=== PATIENT | male | born 1960 | race Asian ===

== ENCOUNTER 2018-03-15 19:49 | Emergency (ER) | payer MEDICAID ==
[~2018-03-15] VITALS: Ht 160 cm; Wt 68.0 kg
[~2018-03-15 19:49] MED LIST: ALBU8HFA PO; AMIO200T57 PO; APIX2.5T PO; CARV3.1289 PO; FURO40TA4 PO; LISI-600 PO; PANT-47 PO
[2018-03-15] MEDS ORDERED: dexamethasone sod phosphate 10mg/ml inj PO STA (20:33)
[2018-03-15] MEDS ORDERED: doxycycline hyclate 100mg tablet.DR PO STA (20:33)
[2018-03-15] MEDS ORDERED: HYDROcodone/acetaminophen 5mg/325mg tablet PO ONE (20:35)
[2018-03-15] MEDS ORDERED: ibuprofen tablet 400 MG TABLET PO ONE (20:35)
[2018-03-15] MEDS ORDERED: DOXY100C43 PO (20:40)
[2018-03-15] MEDS ORDERED: HYDR-3965 PO (20:40)
[2018-03-15] MEDS ORDERED: COLC1TAB2 PO (20:41)
[2018-03-15 21:30] VITALS: BP 138/101
== END 2018-03-15 21:54 | disposition home or self-care (01) ==
LOC: ER 19:50
DX: M10.9 Gout, unspecified (principal); F17.210 Nicotine dependence, cigarettes, uncomplicated; Z79.899 Other long term (current) drug therapy; Z98.890 Other specified postprocedural states
CPT/HCPCS: 99284; J1100

== ENCOUNTER 2020-07-08 22:12 | Emergency (ER) | payer MEDICAID ==
[~2020-07-08] VITALS: Ht 160 cm; Wt 70.5 kg
[~2020-07-08 22:12] MED LIST changes: -AMIO200T57 PO; +AMIO200T61 PO; +COLC1TAB2 PO
[2020-07-08] MEDS ORDERED: oxymetazoline 15 ML nasal spray NS ONE (23:05)
[2020-07-08 23:08] LABS: BASOPHILS # (AUTO) 0.1 X10'3 (0-0.2); BASOPHILS % (AUTO) 0.7 % (0-1); EOSINOPHILS # (AUTO) 0.1 X10'3 (0-0.9); EOSINOPHILS % (AUTO) 1.1 % (0-6); HEMATOCRIT 39.7 % (42.0-52.0); HEMOGLOBIN 12.9 g/dl (14.0-17.9); LYMPHOCYTES # (AUTO) 3.2 X10'3 (1.1-4.8); LYMPHOCYTES % (AUTO) 43.3 % (21-51); MEAN CORPUSCULAR HEMOGLOBIN 29.3 PG (27.0-31.0); MEAN CORPUSCULAR HGB CONC 32.4 g/dL (33.0-36.5); MEAN CORPUSCULAR VOLUME 90.4 FL (78-98); MEAN PLATELET VOLUME 8.8 FL (7.4-10.4); MONOCYTES # (AUTO) 0.6 X10'3 (0-0.9); MONOCYTES % (AUTO) 7.7 % (2-12); NEUTROPHILS # (AUTO) 3.5 X10'3 (1.8-7.7); NEUTROPHILS % (AUTO) 47.2 % (42-75); PLATELET COUNT 187 X10'3 (140-440); RED BLOOD COUNT 4.39 X10'6 (4.70-6.10); RED CELL DISTRIBUTION WIDTH 13.9 % (11.5-14.5); WHITE BLOOD COUNT 7.5 X10'3 (4.5-11.0)
[2020-07-08 23:17] LABS: ALANINE AMINOTRANSFERASE 20 U/L (12-78); ALBUMIN 3.3 G/DL (3.4-5.0); ALBUMIN/GLOBULIN RATIO 0.8 (1.1-1.5); ALKALINE PHOSPHATASE 72 IU/L (46-116); ANION GAP 4 (8-16); ASPARTATE AMINO TRANSFERASE 22 U/L (10-37); BILIRUBIN,TOTAL 0.2 MG/DL (0.1-1.0); BLOOD UREA NITROGEN 21 MG/DL (7-18); BUN/CREATININE RATIO 17.8 (5.4-32.0); CALCIUM 8.3 MG/DL (8.5-10.1); CHLORIDE 108 MMOL/L (99-107); CREATININE 1.18 MG/DL (0.60-1.10); GLUCOSE 101 MG/DL (70-104); POTASSIUM 3.6 MMOL/L (3.5-5.1); SODIUM 141 MMOL/L (135-145); TOTAL CARBON DIOXIDE 28.7 MMOL/L (24-32); TOTAL PROTEIN 7.5 G/DL (6.4-8.2); eGFR 63 ML/MIN
[2020-07-08] MEDS ORDERED: tranexamic acid 1gm/0.7% sal. 100 ML IV ONE (23:55)
[2020-07-09] MEDS ORDERED: tranexamic acid 100mg/ml inj. IV ONE (00:05)
[2020-07-09] MEDS ORDERED: carVEDilol 3.125mg tablet PO STA (00:39)
[2020-07-09] MEDS ORDERED: amiodarone 200mg tablet PO ONE (00:40)
[2020-07-09] MEDS ORDERED: amox tr/potassium clavulanate 875/125mg TAB PO ONE (01:50)
[2020-07-09] MEDS ORDERED: AMOX-422 PO (01:52)
[2020-07-09 02:02] VITALS: BP 125/90
== END 2020-07-09 02:04 | disposition home or self-care (01) ==
LOC: ER 22:12
DX: R04.0 Epistaxis (principal); I50.9 Heart failure, unspecified; I11.0 Hypertensive heart disease with heart failure; J44.9 Chronic obstructive pulmonary disease, unspecified; Z98.890 Other specified postprocedural states; Z87.891 Personal history of nicotine dependence; Z79.2 Long term (current) use of antibiotics; Z79.899 Other long term (current) drug therapy
CPT/HCPCS: 30901; 36415; 80053; 85025; 93005; 99284

== ENCOUNTER 2020-07-12 15:43 | Emergency (ER) | payer MEDICARE, MEDICAID ==
[~2020-07-12] VITALS: Ht 160 cm; Wt 49.0 kg
[~2020-07-12 15:43] MED LIST changes: +AMOX-422 PO
[2020-07-12 15:47] VITALS: BP 115/68
--- NOTE | 2020-07-12 16:59 | NUR ---
PA at bedside with patient after pts son arrived to interprete.
[2020-07-12] MEDS ORDERED: oxymetazoline 15 ML nasal spray NS ONE (17:40)
[2020-07-12] MEDS ORDERED: tranexamic acid 100mg/ml inj. TP ONE (17:40)
== END 2020-07-12 18:36 | disposition home or self-care (01) ==
LOC: ER 15:45
DX: R04.0 Epistaxis (principal); I11.0 Hypertensive heart disease with heart failure; I50.9 Heart failure, unspecified; J44.9 Chronic obstructive pulmonary disease, unspecified; M10.9 Gout, unspecified; Z98.890 Other specified postprocedural states; Z79.899 Other long term (current) drug therapy
CPT/HCPCS: 99283

== ENCOUNTER 2021-04-07 16:45 | Emergency (ER) | payer MEDICARE, MEDICAID ==
[~2021-04-07] VITALS: Ht 152.4 cm; Wt 45.9 kg
[~2021-04-07 16:45] MED LIST changes: -AMOX-422 PO; -LISI-600 PO; +LISI20TA28 PO
--- NOTE | 2021-04-07 17:59 | NUR ---
PATIENT STATES HE INJURED HIS LEFT HAND YESTERDAY WHEN HE WAS CUTTING TREE LIMBS. LEFT HAND IS SWOLLEN WITH MODERATE AMOUNT OF DRIED BLOOD NOTED TO TOP OF HAND AND PALM. PATIENT HAS A PLANT LEAF ON TOP OF HAND. HAND WILL REQUIRE CLEANING TO DETERMINE WHERE WOUNDS ARE AT.
[2021-04-07] MEDS ORDERED: piperacillin/tazo 3.375gm/50ml 50 ML IV ONE (18:00)
[2021-04-07] MEDS ORDERED: bacitracin 15gm ointment TP ONE (18:00)
[2021-04-07] MEDS ORDERED: morphine 4 MG/ML inj SYRINge IV ONE ×2 (18:00→20:00)
[2021-04-07] MEDS ORDERED: vancomycin/NS 1 GM ADD-VANTAGE 250 ML IV ONE (18:00)
[2021-04-07] MEDS ORDERED: normal saline 1000ml 1,000 ML IV ONE (18:00)
[2021-04-07] MEDS ORDERED: TETanus/Pertussis (Acell)/Diphther VAC/PF (Tdap-Adult) 0.5ml syringe IMVAC ONE (18:00)
[2021-04-07] MEDS ORDERED: ondansetron/PF 4mg/2ml inj IV ONE (18:00)
--- NOTE | 2021-04-07 18:10 | NUR ---
PATIENT HAS LIMITED MAURITANIAN AND SAYS THAT HIS DAUGHTER, NIDHI ALLEN, IS ABLE TO SPEAK FLUENT MAURITANIAN. NIDHI CONTACT NUMBER IS . PHONE NUMBER CALLED AND MESSAGE LEFT.
[2021-04-07] MEDS ORDERED: ketorolac tromethamine 15mg/ml inj. IV ONE (18:15)
[2021-04-07 18:44] LABS: BASOPHILS % (AUTO) 0.5 % (0-1); EOSINOPHILS # (AUTO) 0.1 X10'3 (0-0.9); EOSINOPHILS % (AUTO) 0.7 % (0-6); HEMATOCRIT 35.2 % (42.0-52.0); HEMOGLOBIN 11.6 g/dl (14.0-17.9); LYMPHOCYTES # (AUTO) 1.9 X10'3 (1.1-4.8); LYMPHOCYTES % (AUTO) 25.4 % (21-51); MEAN CORPUSCULAR HEMOGLOBIN 29.4 PG (27.0-31.0); MEAN CORPUSCULAR HGB CONC 32.9 g/dL (33.0-36.5); MEAN CORPUSCULAR VOLUME 89.4 FL (78-98); MEAN PLATELET VOLUME 8.6 FL (7.4-10.4); MONOCYTES # (AUTO) 0.8 X10'3 (0-0.9); MONOCYTES % (AUTO) 10.9 % (2-12); NEUTROPHILS # (AUTO) 4.7 X10'3 (1.8-7.7); NEUTROPHILS % (AUTO) 62.5 % (42-75); PLATELET COUNT 184 X10'3 (140-440); RED BLOOD COUNT 3.94 X10'6 (4.70-6.10); RED CELL DISTRIBUTION WIDTH 14.9 % (11.5-14.5); WHITE BLOOD COUNT 7.6 X10'3 (4.5-11.0)
[2021-04-07] MEDS ORDERED: iohexol 350MG/ML 100ml bottle IV ONE (18:48)
[2021-04-07 18:52] LABS: ALANINE AMINOTRANSFERASE 22 U/L (12-78); ALBUMIN 3.1 G/DL (3.4-5.0); ALBUMIN/GLOBULIN RATIO 0.7 (1.1-1.5); ALKALINE PHOSPHATASE 66 IU/L (46-116); ANION GAP 3 (8-16); ASPARTATE AMINO TRANSFERASE 18 U/L (10-37); BILIRUBIN,TOTAL 0.3 MG/DL (0.1-1.0); BLOOD UREA NITROGEN 24 MG/DL (7-18); BUN/CREATININE RATIO 16.4 (5.4-32.0); CHLORIDE 105 MMOL/L (99-107); CREATININE 1.46 MG/DL (0.60-1.10); GLUCOSE 105 MG/DL (70-104); SODIUM 142 MMOL/L (135-145); TOTAL CARBON DIOXIDE 33.7 MMOL/L (24-32); TOTAL PROTEIN 7.4 G/DL (6.4-8.2); eGFR 49 ML/MIN
[2021-04-07 18:53] LABS: CREATINE KINASE 143 U/L (39-308)
--- NOTE | 2021-04-07 19:59 | NUR ---
PAIN INCREASED TO 9/10 AFTER X-RAY AND SOAKING HAND. MD AWARE, NEW ORDERS FOR PAIN CONTROL.
[2021-04-07] MEDS ORDERED: HYDROcodone/acetaminophen 5mg/325mg tablet PO ONE (20:25)
[2021-04-07] MEDS ORDERED: HYDR-3965 PO (20:32)
[2021-04-07] MEDS ORDERED: SULF1TAB49 PO (20:32)
[2021-04-07] MEDS ORDERED: ONDA4TAB6 PO (20:32)
--- NOTE | 2021-04-07 22:45 | NUR ---
PT IS ABLE TO MOVE FINGERS SLIGHTLY, CAP REFILL IS BRISK, SLING AND PATRIZIA WRAP IN PLACE
[2021-04-07 23:22] VITALS: BP 143/96
== END 2021-04-07 22:54 | disposition home or self-care (01) ==
LOC: ER 16:47
DX: S61.412A Laceration without foreign body of left hand, initial encounter (principal); I11.0 Hypertensive heart disease with heart failure; I50.9 Heart failure, unspecified; J44.9 Chronic obstructive pulmonary disease, unspecified; M10.9 Gout, unspecified; Z98.890 Other specified postprocedural states; Z79.899 Other long term (current) drug therapy; Z79.2 Long term (current) use of antibiotics; X58.XXXA Exposure to other specified factors, initial encounter; Y93.89 Activity, other specified; Y92.89 Other specified places as the place of occurrence of the external cause; Y99.8 Other external cause status
CPT/HCPCS: 12001; 36415; 73130; 73206; 80053; 82550; 83605; 83735; 84145; 85025; 87040; 90471; 90715; 93005; 96365; 96367; 96375; 96376; 99285; J1885; J2270; J2405; J2543; J3370; J7030; Q9967

== ENCOUNTER 2021-04-23 08:18 | Day surgery (SDC) | payer MEDICARE, MEDICAID ==
[2021-04-19 12:00] LABS: BASOPHILS % (AUTO) 0.8 % (0-1); EOSINOPHILS # (AUTO) 0.1 X10'3 (0-0.9); EOSINOPHILS % (AUTO) 1.3 % (0-6); LYMPHOCYTES # (AUTO) 1.2 X10'3 (1.1-4.8); LYMPHOCYTES % (AUTO) 25.8 % (21-51); MEAN CORPUSCULAR HEMOGLOBIN 29.3 PG (27.0-31.0); MEAN CORPUSCULAR HGB CONC 32.6 g/dL (33.0-36.5); MEAN CORPUSCULAR VOLUME 89.8 FL (78-98); MEAN PLATELET VOLUME 7.6 FL (7.4-10.4); MONOCYTES # (AUTO) 0.6 X10'3 (0-0.9); NEUTROPHILS # (AUTO) 2.6 X10'3 (1.8-7.7); NEUTROPHILS % (AUTO) 58.1 % (42-75); PRE OP HEMATOCRIT 37.8 % (42.0-52.0); PRE OP HEMOGLOBIN 12.3 g/dL (14.0-17.9); PRE OP PLATELET COUNT 236 X10'3 (140-440); RED BLOOD COUNT 4.21 X10'6 (4.70-6.10); RED CELL DISTRIBUTION WIDTH 15.2 % (11.5-14.5)
[2021-04-19 12:12] LABS: PRE OP INR 1.1 INR; PRE OP PROTIME 10.9 SECONDS (9.0-12.0)
[2021-04-19 12:20] LABS: ALBUMIN 3.9 G/DL (3.4-5.0); ALBUMIN/GLOBULIN RATIO 0.8 (1.1-1.5); ALKALINE PHOSPHATASE 65 IU/L (46-116); BLOOD UREA NITROGEN 26 MG/DL (7-18); BUN/CREATININE RATIO 16.1 (5.4-32.0); CALCIUM 9.1 MG/DL (8.5-10.1); CHLORIDE 104 MMOL/L (99-107); CREATININE 1.61 MG/DL (0.60-1.10); PRE OP ALT 23 U/L (30-65); PRE OP ANION GAP 9 (8-16); PRE OP AST 22 U/L (10-37); PRE OP BILIRUB, TOTAL 0.4 MG/DL (0.0-1.0); PRE OP GLUCOSE 94 MG/DL (70-104); PRE OP POTASSIUM 3.8 MMOL/L (3.4-5.1); PRE OP SODIUM 139 MMOL/L (135-145); TOTAL CARBON DIOXIDE 25.7 MMOL/L (24-32); TOTAL PROTEIN 8.6 G/DL (6.4-8.2); eGFR 44 ML/MIN
[2021-04-23] VITALS (12 sets, daily range): BP systolic 122–175; BP diastolic 86–114
[~2021-04-23] VITALS: Ht 160 cm; Wt 52.6 kg
[~2021-04-23 08:18] MED LIST changes: -ALBU8HFA PO; -AMIO200T61 PO; -APIX2.5T PO; +APIX5TAB3 PO; +BUPIVAcaine/PF 2.5 mg/ml (0.25%) 30ml vial ONE; -CARV3.1289 PO; -COLC1TAB2 PO; -FURO40TA4 PO; +HYDR-3965 PO; +ISOS60TA71 PO; +LEVO137C4 PO; -LISI20TA28 PO; -PANT-47 PO; +SULF1TAB49 PO; +cefazolin/dext.iso 2gm/100ml IV ONE; +famotidine 20mg tablet PO ONE; +ringers solution, lacted 1,000 ML IV SCH
[2021-04-23] MEDS ORDERED: LIDOcaine 0.5% (5mg/ml) 50ml vial ONE (10:13)
[2021-04-23] MEDS ORDERED: labetalol 20mg/4ml (5mg/ml) syringe IV PRN (10:50)
[2021-04-23] MEDS ORDERED: morphine 4 MG/ML inj SYRINge IV PRN (10:50)
[2021-04-23] MEDS ORDERED: morphine 2 MG/ML inj. syringe IV PRN (10:50)
[2021-04-23] MEDS ORDERED: acetaminophen 1,000mg/100ml IV 100 ML IV PRN (10:50)
[2021-04-23] MEDS ORDERED: ringers solution, lacted 1,000 ML IV SCH (10:50)
[2021-04-23] MEDS ORDERED: meperidine/PF 25mg/ml syringe IV PRN ×2 (10:50)
[2021-04-23] MEDS ORDERED: ondansetron/PF 4mg/2ml inj IV PRN (10:50)
[2021-04-23] MEDS ORDERED: hydrALAZINE 20mg/ml inj. IV PRN (10:50)
[2021-04-23] MEDS ORDERED: proCHLORperazine 10 MG/2 ml inj IV PRN (10:50)
[2021-04-23] MEDS ORDERED: fentaNYL/PF 50MCG/1 ML 2ML syringe ONE (12:04)
[2021-04-23] MEDS ORDERED: midazolam 1 mg/ML 2ml injection ONE (12:18)
[2021-04-23] MEDS ORDERED: propofol inj 20 ML IV ONE (12:18)
--- NOTE | 2021-04-23 13:12 | NUR ---
Received from OR via [facility] IN STABLE CONDITION , accompanied by Anesthesiologist and COMMUNICATIONS MARKETING INTERN report given by Baldev. Addendum: 04/23/21 at 1343 by Zainab Yanez RN Amended: Links added.
[2021-04-23] MEDS: meperidine/PF 25mg/ml syringe IV PRN ×2 (13:28→13:47)
[2021-04-23] MEDS ORDERED: HYDROcodone/acetaminophen 5mg/325mg tablet PO ONE (14:05)
--- NOTE | 2021-04-23 14:52 | NUR ---
PATIENT DISCHARGED FROM PACU IN STABLE CONDITION AFTER WRITTEN AND VERBAL DISCHARGE INSTUCTIONS GIVEN TO PATIENT AND SON. PATIENT AND SON GAVE VERBAL UNDERSTANDING OF INSTRUCTIONS GIVEN. PATIENT LEFT FACILITY VIA WHEELCHAIR WITH RN. Addendum: 04/23/21 at 1520 by Zainab Yanez RN Amended: Links added.
== END 2021-04-23 14:52 | disposition home or self-care (01) ==
LOC: PAS 08:18
PROVIDERS: ATTEND Orthopaedic Surgery Hand Surgery
DX: S62.391B Other fracture of second metacarpal bone, left hand, initial encounter for open fracture (principal); S62.393A Other fracture of third metacarpal bone, left hand, initial encounter for closed fracture; S62.611A Displaced fracture of proximal phalanx of left index finger, initial encounter for closed fracture; I10 Essential (primary) hypertension; F32.9 Major depressive disorder, single episode, unspecified; M10.9 Gout, unspecified; F41.9 Anxiety disorder, unspecified; M19.90 Unspecified osteoarthritis, unspecified site; Z20.822 Contact with and (suspected) exposure to COVID-19; Z79.899 Other long term (current) drug therapy; Z87.891 Personal history of nicotine dependence; Z98.890 Other specified postprocedural states; Z79.01 Long term (current) use of anticoagulants; X58.XXXA Exposure to other specified factors, initial encounter; Y93.89 Activity, other specified; Y92.89 Other specified places as the place of occurrence of the external cause; Y99.8 Other external cause status
CPT/HCPCS: 26615; 36415; 80053; 82948; 85025; 85610; 85730; A6222; C1713; J2001; J2175; J2250; J2704; J3010; J3490; J7120; U0003; U0005; A4215; A4618; A6449; A7000

== ENCOUNTER 2021-05-09 20:12 | Emergency (ER) | payer MEDICARE, MEDICAID ==
[~2021-05-09] VITALS: Ht 160 cm; Wt 65.9 kg
[~2021-05-09 20:12] MED LIST changes: -BUPIVAcaine/PF 2.5 mg/ml (0.25%) 30ml vial ONE; -cefazolin/dext.iso 2gm/100ml IV ONE; -famotidine 20mg tablet PO ONE; -ringers solution, lacted 1,000 ML IV SCH
--- NOTE | 2021-05-09 23:30 | NUR ---
MD AT BEDSIDE, REMOVED PT FROM MONITOR, REQUESTS IT STAY OFF DUE TO BEEPING.
[2021-05-09 23:39] LABS: BASOPHILS % (AUTO) 0.5 % (0-1); EOSINOPHILS # (AUTO) 0.1 X10'3 (0-0.9); EOSINOPHILS % (AUTO) 1.6 % (0-6); HEMATOCRIT 32.2 % (42.0-52.0); HEMOGLOBIN 10.5 g/dl (14.0-17.9); LYMPHOCYTES # (AUTO) 1.7 X10'3 (1.1-4.8); MEAN CORPUSCULAR HEMOGLOBIN 28.7 PG (27.0-31.0); MEAN CORPUSCULAR HGB CONC 32.6 g/dL (33.0-36.5); MEAN CORPUSCULAR VOLUME 87.9 FL (78-98); MEAN PLATELET VOLUME 7.7 FL (7.4-10.4); MONOCYTES # (AUTO) 0.8 X10'3 (0-0.9); MONOCYTES % (AUTO) 10.9 % (2-12); NEUTROPHILS # (AUTO) 4.5 X10'3 (1.8-7.7); PLATELET COUNT 297 X10'3 (140-440); RED BLOOD COUNT 3.67 X10'6 (4.70-6.10); RED CELL DISTRIBUTION WIDTH 14.4 % (11.5-14.5); WHITE BLOOD COUNT 7.2 X10'3 (4.5-11.0)
[2021-05-09] MEDS ORDERED: ondansetron 4mg rapidly disintigrating tab PO ONE (23:50)
[2021-05-09] MEDS ORDERED: HYDROcodone/acetaminophen 10/325mg tab PO ONE (23:50)
[2021-05-10 00:05] LABS: ALANINE AMINOTRANSFERASE 26 U/L (12-78); ALBUMIN 3.1 G/DL (3.4-5.0); ALBUMIN/GLOBULIN RATIO 0.6 (1.1-1.5); ALKALINE PHOSPHATASE 64 IU/L (46-116); ANION GAP 8 (8-16); ASPARTATE AMINO TRANSFERASE 25 U/L (10-37); BILIRUBIN,TOTAL 0.2 MG/DL (0.1-1.0); BLOOD UREA NITROGEN 24 MG/DL (7-18); BUN/CREATININE RATIO 20.7 (5.4-32.0); CALCIUM 8.8 MG/DL (8.5-10.1); CHLORIDE 103 MMOL/L (99-107); CREATININE 1.16 MG/DL (0.60-1.10); GLUCOSE 97 MG/DL (70-104); POTASSIUM 3.6 MMOL/L (3.5-5.1); SODIUM 141 MMOL/L (135-145); TOTAL CARBON DIOXIDE 30.5 MMOL/L (24-32); TOTAL PROTEIN 8.2 G/DL (6.4-8.2); eGFR 64 ML/MIN
--- NOTE | 2021-05-10 00:44 | NUR ---
pt moved from bed 17 to main er bed 8. family at bedside. Orders to remove cast to l lower arm. interventional radiology technologist currently working on cast removal. Dressing adhering to the ts skin/surgical site and currently soaking for removal. foul smelling odor noted.
--- NOTE | 2021-05-10 02:05 | NUR ---
cast fully removed and dr. jerry evaluating wound. reports surgical are looks ok and orders to allow to air dry aprox 1/2 hr then redress with same system that was initially in place. Balta Rodriguez, to rewrap.
[2021-05-10 02:37] VITALS: BP 161/92
[2021-05-10] MEDS ORDERED: HYDR-3972 PO (02:37)
[2021-05-10] MEDS ORDERED: ONDA4TAB6 PO (02:37)
[2021-05-10] MEDS ORDERED: HYDROcodone/acetaminophen 10/325mg tab PO ONE (02:55)
== END 2021-05-10 03:43 | disposition home or self-care (01) ==
LOC: ER 20:13
DX: G89.18 Other acute postprocedural pain (principal); I11.0 Hypertensive heart disease with heart failure; I50.9 Heart failure, unspecified; J44.9 Chronic obstructive pulmonary disease, unspecified; M10.9 Gout, unspecified; Z48.01 Encounter for change or removal of surgical wound dressing; Z87.81 Personal history of (healed) traumatic fracture; Z98.890 Other specified postprocedural states; Z79.899 Other long term (current) drug therapy
CPT/HCPCS: 36415; 71045; 80053; 83605; 84145; 85025; 87040; 99284